=== PATIENT | female | born 2000 | race Caucasian/White ===

== ENCOUNTER 2025-06-17 14:31 | Emergency (ER) | payer MEDICAID, SELFPAY ==
[2025-06-17] VITALS (9 sets, daily range): BP systolic 85–126; BP diastolic 54–92; PULSE 49–92; RESP 14–18; TEMP 36.2–36.9; O2SAT 96–100; BMI 37.3
--- NOTE | 2025-06-17 15:11 | CT_ITS ---
PROCEDURE: CT ABDOMEN/PELVIS WITHOUT CONTRAST 06/17/2025 REASON FOR EXAM: LEFT FLANK PAIN TECHNIQUE: Procedure Code: CTABDPEL Modality: CT Procedure: ABDOMEN/PELVIS WITHOUT CONT Noncontrast technique limits evaluation of the abdominal and pelvic viscera. Coronal and Sagittal reconstruction series were provided. One or more dose reduction techniques were used (e.g., Automated exposure control, adjustment of the mA and/or kV according to patient size, use of iterative reconstruction technique). RADIATION DOSE SUMMARY: CTDlvol: 19.02 mGy DLP: 921.82 mGycm COMPARISON: None. FINDINGS: Lung bases: Clear. Liver: Unremarkable. Gallbladder: Unremarkable. Spleen: Unremarkable. Pancreas: Unremarkable. Adrenals: Unremarkable. Kidneys: Unremarkable. No urinary tract calculi or hydroureteronephrosis on either side. Bladder: Unremarkable. No bladder calculus is seen. Reproductive Organs: Grossly unremarkable appearance of the uterus and adnexae. Bowel: No evidence of obstruction or active inflammatory process. Normal appendix. Lymph nodes: No enlarged abdominopelvic lymph nodes. Vasculature: Normal caliber abdominal aorta and IVC. Peritoneum / Retroperitoneum: No ascites or free air. Bones: Unremarkable. CT/Abdomen/Pelvis without Cont IMPRESSION: No acute or active inflammatory intra-abdominal pathology. No urinary tract calculi or hydroureteronephrosis on either side. Reading Location: [facility]
--- NOTE | 2025-06-17 15:15 | ED.VIS.GI ---
HPI HPI - GI History of Present Illness Chief Complaint: Abd Pain Informant: patient Narrative Narrative: Patient is a 25-year-old female with history of bad acid reflux and prior tonsillectomy presenting with worsening left lower quadrant abdominal pain. She she is having pain with nausea Herrera for the past week but became particularly severe today. It radiates towards her left flank. She states she has never had it like this before denies history of kidney stones. Notes her urine has been darker today but denies any painful urination or blood in her urine. Last menstrual period ended a week ago and denies concern for . Denies any change in her bowel movements. Denies a history of any abdominal surgeries. States the pain was so bad today she felt like she was going to pass out. No other complaints or concerns at this time. PFSH PFSH Home Medications ?Medication ?Instructions ?Recorded ?Last Taken ?Type ibuprofen 600 mg tablet 600 mg PO Q6H PRN PRN pain #20 06/17/25 Unknown Rx TABLETS ondansetron 4 mg disintegrating 4 mg PO Q8H PRN PRN Nausea #10 tabs 06/17/25 Unknown Rx tablet Allergy/AdvReac Type Severity Reaction Status Date / Time No Known Allergies Allergy Verified 06/17/25 19:03 Social History Smoking Status: Current every day smoker tobacco type: e-cigarettes ROS ROS ED Constitutional Constitutional ED: Denies chills or fever(s) Cardiovascular Cardiovascular: Denies chest pain Respiratory/Chest Respiratory/Chest: Denies cough Gastrointestinal Gastrointestinal: Reports abdominal pain, nausea and vomiting; Denies constipation or diarrhea Genitourinary Genitourinary ED: Reports other Details: Reports dark urine ; Denies dysuria, hematuria or urinary frequency Musculoskeletal Musculoskeletal: Denies arthralgias or myalgias Integumentary Denies rash Psychiatric Psychiatric: Denies anxiety Hematologic/Lymphatic Hematologic/Lymphatic: Denies easy bleeding or easy bruising EXAM Physical Exam Const Vital Signs: 06/17/25 14:33 06/17/25 15:37 06/17/25 16:00 Temperature 98.5 F 98 F Temperature Source Oral Oral Pulse Rate 92 54 L 49 L Respiratory Rate 18 14 18 Blood Pressure 126/92 H 100/75 105/69 Blood Pressure Mean 103 83 81 Pulse Ox 98 97 96 Oxygen Delivery Method Room Air Room Air Room Air 06/17/25 16:00 06/17/25 17:00 06/17/25 18:00 Temperature 97.1 F L 97.4 F L 97.8 F Temperature Source Oral Oral Oral Pulse Rate 88 67 75 Respiratory Rate 14 14 15 Blood Pressure 85/54 L 104/75 101/88 H Blood Pressure Mean 64 84 92 Pulse Ox 98 100 98 Oxygen Delivery Method Room Air Room Air 06/17/25 19:00 06/17/25 19:03 06/17/25 20:23 Temperature 97.8 F Temperature Source Oral Pulse Rate 59 L 69 Respiratory Rate 16 16 Blood Pressure 100/78 100/78 100/78 Blood Pressure Mean 85 85 85 Pulse Ox 100 98 Oxygen Delivery Method Positive well nourished and well developed Constitutional Narrative: Uncomfortable appearing secondary to pain General Appearance ED: well developed; Negative for pallor HEENT Reports moist mucous membranes Eyes PERRL Neck supple Resp normal respiratory effort and clear to auscultation bilaterally Cardio regular rate and regular rhythm GI non-distended Palpation: soft and tender LLQ; Negative for guarding or rigid Narrative: Charge Rn pelvic exam performed Normal external genitalia with no rashes or sores appreciated. Speculum exam clear vaginal discharge present. Cervical os nonfriable. On bimanual exam no significant cervical motion tenderness or adnexal tenderness. Mild tenderness to the left lower quadrant after the exam. Back/Spine General Back: CVA tenderness left Neuro moves all extremities Sensorium / Orientation: alert, oriented to person, oriented to place and oriented to time Motor Exam: Negative for general weakness Psych mental status grossly normal and thought process normal Mood & Affect: tearful Skin no wounds General Skin Exam: Negative for jaundice or pallor MDM MDM MDM Narrative Medical decision making narrative: Patient evaluated for 1 week of worsening left lower quadrant abdominal pain with associated nausea and vomiting. Low concern for as her last menstrual cycle ended 1 week ago. No history of any abdominal surgeries. Differential includes is not limited to pelvic pain, ovarian torsion, tubo-ovarian abscess, colitis, volvulus, diverticulitis, renal colic and pyelonephritis. Differential also includes radicular pain and muscular/abdominal wall pain. Patient given IV fluids, morphine and Zofran. On physical exam she does not have any hernia consistent with an incarcerated hernia as a cause of her pain. She does have improvement but then does request more pain medications given Toradol. Initial workup including CBC, CMP, lipase, and urinalysis are relatively unremarkable. Her white blood cell count is 12.0 and her hemoglobin mildly elevated 15.4 suggestive of some hemoconcentration. She does not have an KAL and has normal anion gap. There is no obvious source of infection. CT abdomen pelvis does not show any acute process to explain her presentation. On repeat evaluation she still having pain is given Toradol. Pelvic exam performed and she now tells me she has been having some abnormal vaginal discharge she does have a new sexual partner but denies any known STD exposure. Pelvic exam relatively unremarkable. Pelvic ultrasound added on to rule out torsion, ruptured ovarian cyst or tubo-ovarian abscess. This is negative for any acute process. Patient is now requesting to leave. Is given her discharge paperwork as well as prescription for Zofran and Motrin 600 mg. Give referral for primary care doctor. Discharged home in stable condition. Lab Data Attestation: I reviewed the patient's lab results. Labs: Laboratory Results - last 24 hr 06/17/25 15:32 WBC 12.0 H RBC 5.19 Hgb 15.4 H Hct 43.2 MCV 83.2 MCH 29.7 MCHC 35.6 RDW Std Deviation 36.9 RDW Coeff of Jin 12.1 Plt Count 305 MPV 11.1 Immature Gran % (Auto) 0.300 Neut % (Auto) 75.0 H Lymph % (Auto) 16.3 L [place] % (Auto) 5.7 Eos % (Auto) 2.0 Baso % (Auto) 0.7 Absolute Neuts (auto) 9.0 H Absolute Lymphs (auto) 1.95 Nucleated RBC % 0 Sodium 139 Potassium 4.1 Chloride 107 Carbon Dioxide 20.9 L Anion Gap 12 BUN 9 Creatinine 1.01 Estim Creat Clear Calc 98.82 Est GFR (MDRD) Non-Af 80 BUN/Creatinine Ratio 8.4 L Glucose 89 Lactic Acid 1.4 Calcium 9.3 Total Bilirubin 0.37 AST 18 ALT 16 Alkaline Phosphatase 80 Total Protein 6.7 Albumin 4.1 Globulin 2.6 Albumin/Globulin Ratio 1.6 Lipase 14 Serum , Qual NEGATIVE Urine Color Yellow Urine Clarity Cloudy Urine pH 6.0 Ur Specific [place] 1.015 Urine Protein 30 H Urine Glucose (UA) Normal Urine Ketones Negative Urine Occult Blood Negative Urine Nitrite Negative Urine Bilirubin Negative Urine Urobilinogen Normal Ur Leukocyte Esterase Negative Urine RBC 0 SEEN Urine WBC 0 SEEN Ur Squamous Epith Cells 0-5 SEEN Urine Bacteria 2+ Urine Mucus 1+ Radiography Diagnostic Testing: Clinical Impression(s) from Imaging Studies Abdomen/Pelvis CT 06/17/25 15:11 IMPRESSION: No acute or active inflammatory intra-abdominal pathology. No urinary tract calculi or hydroureteronephrosis on either side. Reading Location: [facility] Transvaginal US 06/17/25 19:36 IMPRESSION: Normal pelvic ultrasound. No ovarian torsion, adnexal mass, or free fluid. Reading Location: [address] Discharge Plan Triage Chief Complaint: Abd Pain ED Provider: Tahira Dutton Dx/Rx/DC Orders Clinical Impression: Abdominal pain, left lower quadrant, Nausea & vomiting Instructions: ED Abdominal Pain Unkn Cause Fem, ED Vomiting (Adult) Prescriptions: New ondansetron 4 mg tablet,disintegrating 4 mg PO Q8H PRN PRN (Reason: Nausea) Qty: 10 0RF ibuprofen 600 mg tablet 600 mg PO Q6H PRN PRN (Reason: pain) Qty: 20 0RF Primary Care Provider: Care Physician,No Primary Referrals: Care Physician,No Primary [Primary Care Provider] - Judy Begum Srini, PERSONAL COMPUTER SPECIALIST-C [[facility]] - Activity Restrictions/Additional Instructions: Your workup today did not show cause of the pain. You had some mild findings of dehydration but were given IV fluids. You will be contacted if your gonorrhea and chlamydia returned positive for treatment. I am given referral for family doctor for follow-up. Print Language: Congolese Disposition Disposition: Home, Self Care
[2025-06-17] MEDS: 0.9% Normal Saline (1000mL) 1,000 ML 999 ML IV (15:24)
[2025-06-17 15:41] LABS: Red Blood Cells-Urine 0 SEEN /hpf (0-5)
[2025-06-17 15:52] LABS: Hematocrit 43.2 % (37-47); Hemoglobin 15.4 g/dL (12.0-15.0); Immature Granulocytes Count 0.040 X10^3/uL (0.0-0.0); Mean Corp Hgb Conc 35.6 g/dL (32-36); Mean Corpuscular Volume 83.2 fL (81-99); Mean Platelet Vol. 11.1 fl (6.2-12.0); NRBC Flagged by Analyzer 0 % (0-5); Platelet Count 305 K/mm3 (150-450); RBC Distribution Width CV 12.1 % (11.6-14.6); RBC Distribution Width SD 36.9 fl (35.1-43.9); Red Blood Count 5.19 M/mm3 (4.2-5.4); White Blood Count 12.0 K/mm3 (4.4-11.0)
[2025-06-17 16:03] LABS: Internal QC Validated? YES +Cl - CLEAR BKGD; Pregnancy, Serum, hCG Quali. NEGATIVE Negative; Record Kit Lot#, Serum Preg. 964736
[2025-06-17 16:17] LABS: AST(SGOT) 18 U/L (<=31); Alanine Aminotransfer ALT/SGPT 16 U/L (<=34); Albumin, Serum 4.1 g/dL (3.5-5.0); Alkaline Phosphatase 80 U/L (35-104); Anion Gap 12 (5-15); BUN 9 mg/dL (4-19); BUN/Creat Ratio 8.4 RATIO (10-20); Calcium,Total 9.3 mg/dL (7.6-11.0); Carbon Dioxide 20.9 mmol/L (21.0-32.0); Chloride 107 mmol/L (98-108); Estimated Creatinine Clearance 98.82 ml/min (50-250); Globulin 2.6 g/dL (2.2-4.2); Glucose 89 mg/dL (70-99); Lipase 14 U/L (13-75); Potassium 4.1 mmol/L (3.3-5.1)
[2025-06-17 16:34] LABS: Color, Urine Yellow (Yellow); Glucose, Dipstick Normal (Normal); Ketone-Dipstick Negative (Negative); Leukocyte Esterase-Dipstick Negative /ul (Negative); Nitrite-Dipstick Negative (Negative); Occult Blood-Urine Negative /ul (Negative); Protein-Dipstick 30 mg/dl (Negative); Specific Gravity, Urine 1.015 (1.002-1.030); Urine Bilirubin Dipstick Negative (Negative)
[2025-06-17 17:47] LABS: Mucous, Urine 1+ /hpf (<or=2+); Squamous Epithelial Cells - UA 0-5 SEEN /hpf (5-10)
--- NOTE | 2025-06-17 19:36 | US_ITS ---
PROCEDURE: TRANSVAGINAL NON- 06/17/2025 REASON FOR EXAM: LEFT ADNEXAL PAIN TECHNIQUE: Procedure Code: USTVAG Modality: US Procedure: TRANSVAGINAL NON- FINDINGS: Uterus: Anteverted, measures 6.6 x 4.9 x 3.2 cm. Endometrial thickness 12 mm. Endometrium appears homogeneous without focal mass or fluid. No fibroids identified. Cervix: Within normal limits. No nabothian cysts. IUD: None. Right Ovary: Measures 3.3 x 2.3 x 2.2 cm. Normal blood flow. No cyst >2 cm. No mass identified. Left Ovary: Measures 3.2 x 2.2 x 2.1 cm. Normal blood flow. No cyst >2 cm. No mass identified. Adnexa: No adnexal mass, cystic lesion, or dilated tube bilaterally. Cul-de-sac: No free fluid. Bladder: Unremarkable on limited evaluation. US/Transvaginal Non- IMPRESSION: Normal pelvic ultrasound. No ovarian torsion, adnexal mass, or free fluid. Reading Location: [id number]
--- NOTE | 2025-06-17 20:51 | ED.RN ---
Patient informs RN she would like to leave. she does not want to stay for her results due to her anxiety being so high. Dr. Dutton informed of patients requests. Dr. Dutton states she will call her with her results and will provide her with discharge papers
== END 2025-06-17 21:05 | disposition home or self-care (01) ==
PROVIDERS: Emergency Provider Emergency Medicine; Visit Provider Emergency Medicine
DX: R10.32 Left lower quadrant pain (principal); R11.2 Nausea with vomiting, unspecified; K21.9 Gastro-esophageal reflux disease without esophagitis; F17.290 Nicotine dependence, other tobacco product, uncomplicated
CPT/HCPCS: 74176; 76830; 80053; 81001; 83605; 83690; 84703; 85025; 87491; 87591; 96361; 96374; 96375; 99285; A4216; J2405